=== PATIENT | male | born 1950 | race Caucasian/White ===

== ENCOUNTER 2018-07-11 19:22 | Observation (INO) ==
[2018-07-11] MEDS ORDERED: Aspirin 81 MG TAB.CHEW PO ONE (19:50)
[2018-07-11 20:17] LABS: Basophils # 0.1 K/mcL (0.0-0.2); Basophils % 0.8 %; Eosinophils # 0.2 K/mcL (0.0-0.6); Eosinophils % 3.1 %; Hematocrit 44.3 % (37.5-50.1); Hemoglobin 14.8 g/dL (12.9-16.9); Immature Granulocytes % 0.4 % (0-4); Lymphocytes # 2.7 K/mcL (0.6-4.6); Lymphocytes % 34.2 %; Mean Corpuscular HGB Conc 33.4 g/dL (31.6-35.5); Mean Corpuscular Hemoglobin 30.9 pg (28.0-33.3); Mean Corpuscular Volume 92.5 fL (83.0-100.0); Monocytes # 0.6 K/mcL (0.0-1.3); Monocytes % 8.2 %; Neutrophils # 4.2 K/mcL (1.6-8.9); Platelet Count 278 K/mcL (140-400); Red Blood Count 4.79 M/mcL (4.19-5.50); Red Cell Distribution Width 12.9 % (11.5-14.5); Segmented Neutrophils % 53.3 %
[2018-07-11 20:26] LABS: Prothrombin Time 11.8 Seconds (9.4-12.1)
[2018-07-11 20:29] LABS: Activated Partial Thrombo Time 33.6 Seconds (26.0-36.0)
--- NOTE | 2018-07-11 20:36 | Emergency Department Note ---
Disposition Clinical Impression: Chest pain Qualifiers: Chest pain type: chest pain due to myocardial ischemia Ischemic chest pain type: unspecified angina pectoris type Qualified Code(s): I25.9 - Chronic ischemic heart disease, unspecified General Adult HPI - General Chief complaint: ED Shortness of Breath/Dyspnea Stated complaint: SOB,HBP,Fingers numb Time Seen by Provider: 07/11/18 19:49 Source: patient Limitations: no limitations Nursing Notes Reviewed: Yes Vital Signs Reviewed: Yes - History of Present Illness HPI Narrative: This is a 59-year-old male who describes 1 week of intermittent dizziness, chest discomfort going down his arm. He was diagnosed with hypertension but ultimately stopped taking his lisinopril due to fear of side effects. He ultimately now is complaining of intermittent chest pain worse with exertion. He actually describes giving himself a stress test at home riding on his bike developing similar symptoms. He has had no stress test recently and no cardiac catheterization. General: No acute distress HEENT: Pupils equal and reactive to light, extraoccular muscle movement is normal, TMS are clear bilaterally. Heart: RRR, No murmor rub or gallop Lungs: lungs clear, no wheezing, rales or ronchi. ABD: SNT, no focal areas or tenderness, no guarding or rebound tenderness. Extremities: No cyanosis, clubbing or edema Neuro: CN 2-12 in tact, no focal deficit. strength 5/5. 12 point review of systems is completed and pertinent positives were discussed in my history of present illness Medical decision making We will administer aspirin, x-ray of the chest shows nonspecific linear streaking. He has no cough or productive sputum. Will obtain cardiac biomarkers, EKG shows occasional bigeminal rhythm which subsequently converts into sinus arrhythmia. No ST segment elevation. Given his symptoms have exertionally mediated chest pain and dyspnea will admit for cardiac auscultation and possible stress testing. EKG shows sinus arrhythmia rate of 80 bpm, normal axis, normal intervals, nonspecific ST segments. Pain Scale: 2 - Related Data Allergies Allergy/AdvReac Type Severity Reaction Status Date / Time Cbrzphv-Sty-Mjq Reductase AdvReac See Verified 07/11/18 19:30 Inhibitor Comments [Statins] All systems ED: reviewed and negative except as stated. Past Medical History - Past Medical History Medical history: Reports: hypertension Psychiatric history: Reports: anxiety - Social History Smoking Status: Never smoker Alcohol use: Reports: none Drug use: Reports: none Physical Exam - General Limitations: no limitations General appearance: alert Course Vital Signs Temperature 97.8 F 07/11/18 19:24 Pulse Rate 87 07/11/18 19:24 Respiratory Rate 20 07/11/18 19:24 Blood Pressure 154/104 07/11/18 19:24 O2 Sat by Pulse Oximetry 97 07/11/18 19:24 Temperature 97.8 F 07/11/18 19:24 Pulse Rate 83 07/11/18 20:04 Respiratory Rate 20 07/11/18 19:24 Blood Pressure 137/96 07/11/18 20:04 O2 Sat by Pulse Oximetry 97 07/11/18 19:46 Oxygen Delivery Oxygen Delivery Room Air Medical Decision Making - Lab Data Result diagrams: 07/11/18 19:56 Lab Results 07/11/18 07/11/18 Range/Units 19:56 19:56 WBC 7.8 (4.3-11.1) K/mcL RBC 4.79 (4.19-5.50) M/mcL Hgb 14.8 (12.9-16.9) g/dL Hct 44.3 (37.5-50.1) % MCV 92.5 (83.0-100.0) fL MCH 30.9 (28.0-33.3) pg MCHC 33.4 (31.6-35.5) g/dL RDW 12.9 (11.5-14.5) % Plt Count 278 (140-400) K/mcL MPV 10.0 (9.4-12.4) fL Immature Gran % 0.4 (0-4) % Seg Neutrophils % 53.3 % Lymphocytes % 34.2 % Monocytes % 8.2 % Eosinophils % 3.1 % Basophils % 0.8 % Neutrophils # 4.2 (1.6-8.9) K/mcL Lymphocytes # 2.7 (0.6-4.6) K/mcL Monocytes # 0.6 (0.0-1.3) K/mcL Eosinophils # 0.2 (0.0-0.6) K/mcL Basophils # 0.1 (0.0-0.2) K/mcL PT 11.8 (9.4-12.1) Seconds INR 1.0 APTT 33.6 (26.0-36.0) Seconds
[2018-07-11 20:37] LABS: BUN/Creatinine Ratio 14 (6-26); Blood Urea Nitrogen 18 mg/dL (8-23); Calcium 9.3 mg/dL (8.6-10.3); Carbon Dioxide 25 mEq/L (23-29); Chloride 104 mEq/L (98-107); Glucose 151 mg/dL (70-105); Osmolality,Calculated 291 (280-300); Potassium 3.8 mEq/L (3.5-5.1); Sodium 138 mEq/L (136-145); Troponin I < 0.03 ng/mL (< 0.04); eGFR For Non-African Americans 57 (> 60)
[2018-07-11] MEDS ORDERED: Nitroglycerin 0.4 MG TAB.SUBL SL PRN (20:49)
--- NOTE | 2018-07-11 21:27 | Internal Med History&Physical ---
Date of Encounter: 07/11/18 Time of Encounter: 21:27 Internal Medicine - H&P: HPI Chief complaint: chest pain Admitted From: Home Plans for Post Hospital Care: Home History of present illness: Surjit Foster is a 67 year old obese male with a history of hypertension on Lisinopril who presents to the ER with the complaint of chest pain. He relates that about 10 days ago he felt lightheaded without any triggering incident but was short-lived. He subsequently developed some shortness of breath a few days later without chest pain. This was accompanied by dry cough and he read online that ACEI could be a cause so he stopped it. He also thought the shortness of breath may be secondary to the flu vaccine he recently receiving. However it continued intermittently, not associated with diaphoresis, chest pain or lightheaded so he decided to stress himself by cycling on a bike and using an elliptical to see if it made it worse. He isnt sure if it did. A few days ago he felt a little pain in his left chest area after lifting some weights. Today he felt numbness and tingling in his left arm going down to his fingers associated with mild pain he localizes above his left nipple area. In the ER he was seen clinically and hemodynamically stable. My review of his EKG and telemetry shows some premature atrial complexes with sinus pauses but otherwise unremarkable. He feels well at this time and has no complaints. His initial troponin is negative. Past Med Surg Social Fam HX - Past Medical History Medical history: hypertension Psychiatric history: anxiety - Past Surgical History Additional surgical history: eye - Social History Smoking Status: Never smoker Alcohol use: none Drug use: none Internal Medicine - H&P: Meds ALPRAZolam [Xanax 1 MG Tablet] 1 mg PO BID PRN 07/11/18 [History] Lisinopril [Zestril] 10 mg PO DAILY 07/11/18 [History] Multivitamin [One Daily Essential] 1 tab PO DAILY 07/11/18 [History] Allergy/AdvReac Type Severity Reaction Status Date / Time Ljaepbe-Jps-Mjc Reductase AdvReac See Verified 07/11/18 19:30 Inhibitor Comments [Statins] All Systems PM: A 10-system review of systems was performed and is negative for pertinent findi ngs except as documented above in the HPI. Family history reviewed and found noncontributory. - Constitutional Vitals: Temp Pulse Resp BP Pulse Ox 97.8 F 83 20 137/96 97 07/11/18 19:24 07/11/18 20:04 07/11/18 19:24 07/11/18 20:04 07/11/18 19:46 Exam: Vitals: Reviewed General: Obese white male lying comfortably in bed in no acute distress Skin: Warm and supple. HEENT: Moist mucous membranes. No conjunctivae pallor. Neck: No lymphadenopathy. No JVD. No carotid bruits. No palpable thyroid. Chest: Normal thoracic expansion. Normal breath sounds. Clear to auscultation. Heart: Normal S1 & S2; rhythmic. No rubs or murmurs. Abdomen: Protuberant, soft and non-tender to palpation. No peritoneal reaction. Extremities: No clubbing, cyanosis or edema. No calf tenderness. Normal distal pulses. Neurological: Awake, alert and oriented to person, place and time. No focal deficits. Psych: Affect appropriate. Internal Med - H&P Results - Labs CBC & Chem 7: 07/11/18 19:56 07/11/18 19:56 Labs: Short CBC 07/11/18 Range/Units 19:56 WBC 7.8 (4.3-11.1) K/mcL Hgb 14.8 (12.9-16.9) g/dL Hct 44.3 (37.5-50.1) % Plt Count 278 (140-400) K/mcL Neutrophils # 4.2 (1.6-8.9) K/mcL BMP 07/11/18 19:56 Sodium 138 Potassium 3.8 Chloride 104 Carbon Dioxide 25 BUN 18 Creatinine 1.25 Glucose 151 H Calcium 9.3 Cardiac Enzymes 07/11/18 Range/Units 19:56 Troponin I < 0.03 (< 0.04) ng/mL - Impressions ITS Impressions Chest X-Ray 07/11/18 19:50 IMPRESSION: Minimal linear atelectasis or scarring within the left lateral lung base. Otherwise negative portable study. D/ / Janeen Sher Cha, MD / Janeen Sher Cha, MD Interpreting Provider: Janeen Sher Cha, MD - Assessment and plan (1) Chest pain Current Visit: Yes Status: Acute Assessment and plan: The patient is at moderate risk of ACS and therefore warrants observation based on his HEART score. Will monitor on telemetry, trend troponins and keep NPO for stress test in the morning. Qualifiers: Chest pain type: unspecified Qualified Code(s): R07.9 - Chest pain, unspecified (2) HTN (hypertension) Current Visit: Yes Status: Acute Assessment and plan: Well controlled at this time. He believes his dry cough may be associated with lisinopril use. We can consider alternatives upon discharge after discussion with his PCP. Qualifiers: Hypertension type: essential hypertension Qualified Code(s): I10 - Essential (primary) hypertension (3) Obesity Current Visit: Yes Status: Chronic Assessment and plan: Will benefit from nutrionist consultation. Qualifiers: Obesity type: due to excess calories Obesity classification: adult class 1 (BMI 30 - 34.9) Serious obesity comorbidity presence: with serious comorbidity Body mass index: BMI 30.0-30.9 Qualified Code(s): E66.09 - Other obesity due to excess calories; Z68.30 - Body mass index (BMI) 30.0-30.9, adult (4) DVT prophylaxis Current Visit: Yes Status: Acute Assessment and plan: SubQ heparin. (5) Anxiety disorder Current Visit: Yes Status: Chronic Assessment and plan: Will continue alprazolam prn. Qualifiers: Anxiety disorder type: unspecified anxiety disorder Qualified Code(s): F41.9 - Anxiety disorder, unspecified - Time Spent With Patient Total time spent is greater than 50% in coordination of care (as documented) at patient's floor/unit and/or counseling patient: Greater than 35 minutes
[2018-07-11] MEDS: *HR* Heparin 5,000 UNIT/ML VIAL SQ SCH (22:40)
[2018-07-11] MEDS: Acetaminophen 325 MG TABLET PO PRN (23:53)
[2018-07-12 02:31] LABS: Chol/HDL Ratio 4.8 (0-4.9)
[2018-07-12] MEDS: *HR* Heparin 5,000 UNIT/ML VIAL SQ SCH ×2 (05:48→12:02)
[2018-07-12] MEDS ORDERED: Regadenoson 0.4 MG/5 ML SYRINGE IVP ONE (05:55)
[2018-07-12] MEDS: Acetaminophen 325 MG TABLET PO PRN (05:58)
[2018-07-12 07:37] LABS: Estimated Average Glucose 126 mg/dl
[2018-07-12] MEDS ORDERED: Ketorolac 30 MG/ML VIAL IVP ONE (11:45)
[2018-07-12] MEDS ORDERED: ALPRAZolam 1 MG TABLET PO PRN (11:46)
--- NOTE | 2018-07-12 11:50 | Discharge Summary ---
- NOTES TO OUTPATIENT PROVIDER Notes to Outpatient Provider: basic d/c f/u Orders not resulted at time of discharge: Pending orders 07/11/18 20:49 NM caroline perf SPECT multi [NM] Routine Date of Encounter: 07/12/18 Time of Encounter: 11:47 - Discharge Diagnosis (1) Chest pain Priority: Primary Status: Acute Qualifiers: Chest pain type: unspecified Qualified Code(s): R07.9 - Chest pain, unspecified (2) HTN (hypertension) Priority: Secondary Status: Acute Qualifiers: Hypertension type: essential hypertension Qualified Code(s): I10 - Essential (primary) hypertension (3) Obesity Priority: Secondary Status: Chronic Qualifiers: Obesity type: due to excess calories Obesity classification: adult class 1 (BMI 30 - 34.9) Serious obesity comorbidity presence: with serious comorbidity Body mass index: BMI 30.0-30.9 Qualified Code(s): E66.09 - Other obesity due to excess calories; Z68.30 - Body mass index (BMI) 30.0-30.9, adult (4) Anxiety disorder Priority: Secondary Status: Chronic Qualifiers: Anxiety disorder type: unspecified anxiety disorder Qualified Code(s): F41.9 - Anxiety disorder, unspecified (5) DVT prophylaxis Priority: Secondary Status: Acute Hospital course: Mr. Foster is a 67 year old male with a PMH of HTN. Presented with complaint of chest pain for approximately 10 days. He was admitted for ACS rule out. EKG is of no ST-T wave changes concerning for ischemia, no events on telemetry throughout stay. Repeat serial troponins negative. He underwent a stress test on 07/12/18 which showed negative perfusion imaging and ECG tracing negative for ischemia. His chest pain did resolve without further intervention. He reports that he noticed he was hypertensive prior to arrival as he had not been taking his blood pressure medications for approximately 48 hours. He notes that his chest pain improved with improvement in blood pressure. Additionally, he reports that he presented initially more with concerns for headache and hypertension and chest pain. With improvement in blood pressure is headache also improved. He reports that he has had chronic headaches for multiple years. His headache during this admission is not any different from prior. No medications were changed at time of discharge. He has been instructed to follow-up with PCP within 1 week of discharge. Discharge discussed with: patient, family, nurse - Time Spent with Patient Total time spent providing and/or coordinating discharge services: Less than 30 minutes - Discharge Medications Home Medications: ALPRAZolam [Xanax 1 MG Tablet] 1 mg PO BID PRN 07/11/18 [History] Lisinopril [Zestril] 10 mg PO DAILY 07/11/18 [History] Multivitamin [One Daily Essential] 1 tab PO DAILY 07/11/18 [History] Allergies/Adverse Reactions: Allergy/AdvReac Type Severity Reaction Status Date / Time Hvchlzq-Njy-Ptl Reductase AdvReac See Verified 07/11/18 19:30 Inhibitor Comments [Statins] Date of admission: 07/11/18 20:55 Primary care physician: Rena Cooley CNP Discharging clinician: Erick Pablo Anticipated date of discharge: 07/12/18 - Constitutional Vitals: Temp Pulse Resp BP Pulse Ox 97.9 F 73 18 147/73 97 07/12/18 11:38 07/12/18 11:38 07/12/18 11:38 07/12/18 11:38 07/12/18 11:38 General appearance: Present: A&O X 3 Exam: see exam - Head Head exam: Present: atraumatic, normocephalic - Eye Eye exam: Present: PERRL, conjuntiva pink, sclera anicteric Pupils: Present: PERRL - Neck Neck exam general surgery: Present: supple, trachea midline. Absent: lymphadenopathy - Respiratory Respiratory exam: Present: CTAB. Absent: accessory muscle use, rales, rhonchi, wheezes - Cardiovascular Cardiovascular exam: Present: RRR, +S1, +S2. Absent: diastolic murmur, gallop, rubs, systolic murmur - GI/Abdominal GI/Abdominal exam: Present: normal bowel sounds, soft, no peritoneal signs. Absent: distended, tenderness - Extremities Exam Extremities exam: Present: warm, radial pulses palpable and symmetrical. Absent: calf tenderness, cyanotic, pedal edema - Neurological Exam Neurological exam: Present: CN II-XII intact, oriented X3, no focal deficits. Absent: pronater drift, facial droop, speech deficit - Skin Skin exam: Present: dry, intact - Patient Status Disposition: Home, Self-Care Condition: Good Functional capacity at discharge: independent ambulation Overall status at discharge: patient is progressing back to baseline - Discharge Instructions Instructions: Chest Pain (DC), Chronic Hypertension (DC), Anxiety (DC) Follow Up With: Ysabel Watts PAC [Physician Licensing Court Magistrate] - 09/16/18 9:30 am Rena Cooley CNP [Primary Care Provider] - 07/19/18 1:00 pm - Diet and Activity Activity: increase activity as tolerated, resume usual activities as tolerated Diet: diabetic diet, low fat, low cholesterol, low salt diet
[2018-07-12] MEDS ORDERED: Multivit/Ca/Min/Fe/FA 1 TAB TABLET PO SCH (12:00)
[2018-07-12 12:59] VITALS: BP 126/80
--- NOTE | 2018-07-13 15:10 | Electrocardiograph Report ---
[address] [place], [place] [address] Test Date: 2018-07-11 Pat Name: Surjit Foster Department: [id number] Room: 3B38 Gender: M System Specialist: : 1950 Requested By: Jorge Sullivan Order Number: [id number] Reading MD: Rajiv Sylvester Measurements Intervals [place] Rate: 80 P: 55 ID: 160 QRS: 31 QRSD: 81 T: 70 QT: 363 QTc: 419 Interpretive Statements Sinus rhythm Atrial premature complexes Electronically Signed On 07-13-2018 15:09:21 EST by Rajiv Sylvester
--- NOTE | 2018-07-13 15:11 | Electrocardiograph Report ---
[place] [address] Test Date: 2018-07-11 Pat Name: Surjit Foster Department: [id number] Room: 3B38 Gender: M Blood Bank Calendar Control Clerk: : 1950 Requested By: Erick Pablo Order Number: [id number] Reading MD: Rajiv Sylvester Measurements Intervals [place] Rate: 96 P: 57 [place]: 160 QRS: 42 QRSD: 82 T: 67 QT: 345 QTc: 365 Interpretive Statements Sinus rhythm PACs and PVCs Electronically Signed On 07-13-2018 15:09:53 EST by Rajiv Sylvester
== END 2018-07-12 13:30 | disposition home or self-care (01) ==
LOC: 3BNU 19:22 → EMEROOARM 19:22 → SUATTDRO 20:55 → 3BNU 22:11
PROVIDERS: ADMIT Internal Medicine; ATTEND Nurse Practitioner